=== PATIENT | female | born 1955 | race Caucasian/White ===

== ENCOUNTER → 2016-06-11 | Outpatient (CLI) | payer OTHER ==
[~2016-06-11] VITALS: Ht 180.3 cm; Wt 74.8 kg
[~2016-06-11] MED LIST: ADIPEX-P37.5 M1 PO; ALDACTONE100 MG PO; ALDACTONE25 MG PO; AMBIEN 10 MG TA10 MG PO; AMBIEN 5 MG TABL5 M1 PO; APAP500; BACLOFEN 10 MG Table PO; BACLOFEN 10 MG10 MG PO; BACLOFEN 10MG T10 M1 PO; BACLOFEN 10MG T10 MG PO; BENADRYL ALLERG25 MG; CLONIDINE0.1 PO; DESYREL150 MG PO; DOLOPHINE HCL10 MG PO; ESTRACE PO; Estradiol PO; FIRST-TESTOSTER60 G1; HYOMAX-DT0.375 MG PO; KAPVAY0.1 MG PO; KLONOPIN0.5 MG PO; LEVOTHROID100 MC1 PO; LEVOTHYROXIN0.075 MG PO; LIPITOR10 MG PO; LYRICA 50 MG50 MG PO; LYRICA 75 MG CA75 MG PO; MEDROLDOSEPACK PO; MELATONIN5 M1 PO; METHADONE HCL 110 M1 PO; METHADOSE10 M1 PO; METHADOSE10 MG PO; MOBIC15 MG PO; PHENTERMINE H37.5 MG PO; PRAVACHOL40 MG PO; PROTONIX 20 MG20 M1 PO; RESVERATROL250 MG PO; SYNTHROID100 MCG PO; TESTOSTERONE2.5 GM TD; TRAZODONE 150150 M1 PO; VISTARIL 25 MG25 M1 PO; WELLBUTRIN SR150 MG PO; WELLBUTRIN XL300 M1 PO
--- NOTE | ~2016-06-11 | HPC ---
[facility] [place] [address] PAIN MANAGEMENT CONSULTATION Name: ROSLYNADINA Roman [facility] #: [facility] [id number] Admission: 06/11/16 Attend Phys: Magaly Cottrell MD Discharge: Date of : 55 Report #: [id number] THIS REPORT FOR: //name// CC: JULIAN Rossi DATE OF SERVICE: 06/11/2016 DATE OF SERVICE: 06/11/2016 FOLLOWUP COMPLAINT: Pain in the left upper neck and middle back. FOLLOWUP HISTORY: The patient is a 60-year-old female, who has been followed in the pain clinic because of right shoulder pain. She also, as you recall, has chronic regional pain syndrome involving her left side. She has noted increased pain and discomfort in the right shoulder area as well as in the right scapular area. She rates these discomfort as a 8-9/10. It causes more pain and discomfort when she tries to perform activities of daily living. She has noted some pain and discomfort radiating down the side of her right shoulder as well as some in the area of the right clavicle. PHYSICAL EXAMINATION: Blood pressure 147/89, pulse 81, respiratory rate 14, room air saturations 100%. The patient's BMI is 23, weight 74 kilograms. Palpation in the right trapezius area reproduces a myofascial trigger points. Palpation in the rhomboid area on the right paraspinous area reproduces pain and discomfort as well. IMPRESSION: Mild fascial trigger points in 2 muscle groups in the right trapezius as well as the right rhomboid area. RECOMMENDATION: We will proceed with an injection to the 2 trigger point areas. Risks and benefits of a trigger point were discussed. Possibility of pneumothorax was reviewed. The patient elects to proceed. PROCEDURE NOTE: The patient was placed in the sitting position. Her right shoulder area was sterilely prepped with alcohol. A #25-gauge needle was then advanced to the area of the trapezius muscle. The patient stated that the needle was placed in the trigger point and was experiencing her usual pain and discomfort. A total of 10 mL of 0.5% bupivacaine and 40 mg triamcinolone was injected into this area. The second trigger point at the rhomboid area on the right was noted. A #25-gauge needle was then advanced to this area. This reproduced the patient's pain and discomfort as well. A total of 10 mL of 0.5% bupivacaine and 40 mg triamcinolone was injected. The patient tolerated the procedure well. There were no complications. Her pain decreased from 9-3 at the time of discharge. She will follow up in the future [place] [address] PAIN MANAGEMENT CONSULTATION Name: ADINA MCGOWAN Room #: REG SHANIA Weber#: [id number] Admission: 06/11/16 Attend Phys: Magaly Cottrell MD Discharge: Date of : 55 Report #: [id number] like to thank you for letting us participate in her care. We hope she continues to improve. IMPRESSION: 1. Myofascial trigger points. 2. Chronic regional pain syndrome involving her right upper extremity. 3. History of lumbar radiculopathy. <ELECTRONICALLY SIGNED> By: Magaly Cottrell MD 07/06/16 1018 1540 [id number] Magaly Cottrell MD /nt
[2016-06-11 11:02] VITALS: BP 147/89
== END ==
LOC: PAIN 07:05
DX: M79.1 Myalgia (principal); G89.4 Chronic pain syndrome; M54.2 Cervicalgia; M54.89 Other dorsalgia; M54.16 Radiculopathy, lumbar region; I10 Essential (primary) hypertension; Z87.891 Personal history of nicotine dependence

== ENCOUNTER → 2016-11-05 | Outpatient (CLI) | payer OTHER ==
[~2016-11-05] VITALS: Ht 180.3 cm; Wt 73.1 kg
--- NOTE | ~2016-11-05 | HPC ---
[facility] [place] [address] PAIN MANAGEMENT CONSULTATION Name: ADINA MCGOWAN [facility] #: [facility] [id number] Admission: 11/05/16 Attend Phys: Magaly Cottrell MD Discharge: Date of : 55 Report #: [id number] THIS REPORT FOR: //name// CC: Maggie Nguyen The patient is seen on 11/05/[address] Donavan Cottrell. FOLLOWUP COMPLAINT: Here for medication renewal, things are going reasonably well. FOLLOWUP HISTORY: The patient is a 61-year-old female who has been followed in the pain clinic. As you recall, she suffers from chronic regional pain syndrome involving her left arm. She continues to find the stimulator helpful. She has continued benefit from bit baclofen, trazodone and hydroxyzine 25 mg. She would like to have these medications renewed. She has had no complications from their use. She is not having any problems with mentation. She feels that these medications enable her to engage in activities, she would not be able to without their use. PHYSICAL EXAMINATION: EXTREMITIES: Patient rates her pain as a 7/10. It involves her right side with radiation down the anterior portion of her right shoulder. She has some trigger points involving the shoulders as well. IMPRESSION: 1. Mild myofascial trigger points in the right trapezius. 2. Right shoulder pain involving reflex sympathetic dystrophy/complex regional pain syndrome involving the left side. RECOMMENDATIONS: We discussed treatment options with the patient. We will continue with her current medical regimen of trazodone, baclofen and hydroxyzine. She will call us if she has any problems with her medications. We would like to thank you for letting us participate in her care. We hope she continues to improve. ASSESSMENT: 1. Myofascial trigger points in the right side. 2. Left circumflex regional pain syndrome involving the upper arm. 3. History of lumbar radiculopathy stable at this juncture. <ELECTRONICALLY SIGNED> By: Magaly Cottrell MD 11/10/16 0810 1026 1257 Magaly Cottrell MD /nt
[2016-11-05 09:09] VITALS: BP 148/96
== END ==
LOC: PAIN 06:47
DX: G89.4 Chronic pain syndrome (principal); M79.1 Myalgia; Z79.899 Other long term (current) drug therapy; Z87.891 Personal history of nicotine dependence

== ENCOUNTER → 2017-01-03 | Outpatient (CLI) | payer OTHER ==
[~2017-01-03] VITALS: Ht 180.3 cm; Wt 73.3 kg
[~2017-01-03] MED LIST changes: +HYDROCHLOROTH12.5 M1 PO; +VOLTAREN GEL 1100 G1 TOP
--- NOTE | ~2017-01-03 | HPC ---
[facility] [place] [address] PAIN MANAGEMENT CONSULTATION Name: ROSLYNADINA Abel Room #: REG Jia Weber#: [id number] Admission: 01/03/17 Attend Phys: Scout Martinez DO Discharge: Date of : 55 Report #: [id number] THIS REPORT FOR: //name// CC: Maggie Martinez HISTORY OF PRESENT ILLNESS: The patient is a pleasant 61-year-old female typically treated for RSD left upper extremity, though this is relatively quiescent. She has a spinal cord stimulator in place which is quite helpful. She was last seen in the pain clinic 11/05/2016. She follows with Dr. Donavan Cottrell for medication management, was given trazodone, baclofen, and hydroxyzine in the last visit. She returns to pain clinic today noting that the right knee is becoming more problematic. I have done a series of Synvisc injections in October 2015. She had excellent relief, though notes pain is gradually beginning to recur. Pain is in the inferior aspect of the right knee, more in the medial aspect, ligaments are intact. There is negligible ballottable edema. She incidentally notes pain in the right wrist as well, it is at the ulnar aspect. I detect no edema. There does not appear to be an obvious ganglion cyst here. Point tender, I suggested we will try some Voltaren gel and have her follow up with orthopedics for evaluation if the wrist continues despite topical Voltaren gel. ASSESSMENT: Symptomatic degenerative joint disease, right knee, excellent relief with Synvisc injection, a little greater than a year ago (October 2015). We will seek authorization for repeat series of Synvisc injection to the right knee. Follow up Tuesday for injection. <ELECTRONICALLY SIGNED> By: Scout Martinez DO 01/05/17 0801 1202 1447 Scout Martinez DO /nt
[2017-01-03 09:11] VITALS: BP 126/75
== END ==
LOC: PAIN 06:37
DX: M17.11 Unilateral primary osteoarthritis, right knee (principal)

== ENCOUNTER → 2017-01-07 | Outpatient (CLI) | payer OTHER ==
[~2017-01-07] VITALS: Ht 177.8 cm; Wt 72.6 kg
--- NOTE | ~2017-01-07 | HPC ---
[facility] [place] [address] PAIN MANAGEMENT CONSULTATION Name: ROSLYNADINA Abel Room #: REG Jia Weber#: [id number] Admission: 01/07/17 Attend Phys: Scout Martinez DO Discharge: Date of : 55 Report #: [id number] THIS REPORT FOR: //name// CC: Maggie Martinez HISTORY OF PRESENT ILLNESS: The patient is a 61-year-old female, prior seen in the pain clinic on 01/03/2017, diagnosed with symptomatic DJD right knee. She had prior had a series of Synvisc injections back in October 2015, little greater than a year ago, she had excellent relief, greater than 90% for 6 months, pain has gradually begun to recur. We sought authorization for another series of Synvisc injections. She presents to pain clinic today for said injection. PHYSICAL EXAMINATION: Unchanged from last visit, vital signs are stable as noted in the EMR, she is afebrile. Subjective pain is 7 on VAS. We have elected to proceed with Synvisc injection today, we will do #2 on 01/20/2017 and #3 Synvisc injection on 02/03/2017. ASSESSMENT: Degenerative joint disease, right knee. PROCEDURE: After written informed consent was obtained, the patient was placed in the seated position with right leg "dangling." Skin overlying the knee was cleansed with ChloraPrep. Skin wheal with Xylocaine was raised. A 20-gauge Angiocath was inserted from an inferior lateral approach over the fibula in the superior medial trajectory into the knee joint. The needle was removed, 2 mL of Synvisc was injected. The Angiocath was removed. The area was cleansed, Band-Aids applied. The patient monitored for an appropriate period of time. I reviewed the primary risk being infection, told to return to the ER if she has signs and symptoms of swelling in the right knee, warmth, heat, hyperpyrexia. <ELECTRONICALLY SIGNED> By: Scout Martinez DO 01/10/17 0908 1200 1221 Scout Martinez DO /nt
[2017-01-07 10:08] VITALS: BP 143/77
== END | disposition home or self-care (01) ==
LOC: PAIN 07:19
DX: M17.11 Unilateral primary osteoarthritis, right knee (principal); Z87.891 Personal history of nicotine dependence

== ENCOUNTER → 2017-01-20 | Outpatient (CLI) | payer OTHER ==
[~2017-01-20] VITALS: Ht 172.7 cm; Wt 72.6 kg
--- NOTE | ~2017-01-20 | HPC ---
[facility] [place] [address] PAIN MANAGEMENT CONSULTATION Name: ROSLYNADINA Roman Room #: REG [facility] Gus#: [id number] Admission: 01/20/17 Attend Phys: Scout Martinez DO Discharge: Date of : 55 Report #: [id number] THIS REPORT FOR: //name// CC: Maggie Martinez PROCEDURE: Right knee joint injection (Orthovisc). INDICATIONS: Symptomatic degenerative joint disease right knee, the patient had initial Orthovisc injection 01/07/2017. She prior had excellent relief with a series of three injections in October 2015 for nearly 1 year relief. The patient returns to pain clinic today noting the first injection has afforded some incremental relief. She wished to proceed with the injection today. She is afebrile. PHYSICAL EXAMINATION: Unchanged. There is no ballottable edema in the right knee. ASSESSMENT: Degenerative joint disease, right knee. PROCEDURE: After written informed consent was obtained, the patient was placed in the seated position with right leg allowing to "dangle." Skin in the inferolateral aspect of the knee was cleansed with ChloraPrep. A skin wheal was raised with Xylocaine 1%. A 20-gauge Angiocath was inserted from an inferior lateral aspect and superior medial trajectory over the tibial tubercle and to the knee joint. Needle was removed. A 2 mL of Orthovisc was injected, the Angio-cath was removed. The area was cleansed, Band-Aids applied. The patient was told to use ice to the area today. Contact the pain clinic if she has any symptoms of infection including temperature, fever, chills, swelling, redness in the knee. PLAN: Follow up in 2 weeks for a third injection. <ELECTRONICALLY SIGNED> By: Scout Martinez DO 01/21/17 1225 1136 1945 Scout Martinez DO /nt
[2017-01-20 09:16] VITALS: BP 148/93
== END | disposition home or self-care (01) ==
LOC: PAIN 06:52
DX: M17.11 Unilateral primary osteoarthritis, right knee (principal); G89.29 Other chronic pain; Z98.890 Other specified postprocedural states; Z87.891 Personal history of nicotine dependence; Z79.899 Other long term (current) drug therapy

== ENCOUNTER → 2017-02-03 | Outpatient (CLI) | payer OTHER ==
[~2017-02-03] VITALS: Ht 177.8 cm; Wt 72.4 kg
--- NOTE | ~2017-02-03 | HPC ---
[facility] [place] [address] PAIN MANAGEMENT CONSULTATION Name: ADINA MCGOWAN Room #: REG [facility] Gus#: [id number] Admission: 02/03/17 Attend Phys: Scout Martinez DO Discharge: Date of : 55 Report #: [id number] THIS REPORT FOR: //name// CC: Maggie Martinez The patient is a delightful 61-year-old female being treated for right knee DJD. She has comorbidity including left upper extremity RSD requiring high risk complex medication management. She presents to pain clinic today for #3 in a series of Synvisc injections in that right knee. Injection #1 was January 07, injection #2 was January 20. She notes incremental improvement. She wishes to proceed with injection today. We discussed risks and benefits including possibility of infection. PROCEDURE: Right knee Synvisc injection. PROCEDURE NOTE: After written informed consent was obtained, the patient was placed in a seated position with weight offloaded on the right leg. Wide prep and drape was accomplished. Skin wheal with Xylocaine was raised. A 20-gauge Angiocath was inserted from an inferior lateral approach immediately over the lateral aspect of the fibula into the joint in a medial superior trajectory. 2 mL of Synvisc was injected. The Angiocath was then removed. The area was cleansed, Band-Aids applied. The patient monitored for an appropriate period of time, told to use ice to the area today. Monitor for signs of infection. Follow up as needed for medication management. <ELECTRONICALLY SIGNED> By: Scout Martinez DO 02/04/17 0705 1241 1642 Scout Martinez DO /nt
[2017-02-03 09:21] VITALS: BP 129/76
== END | disposition home or self-care (01) ==
LOC: PAIN 06:45
DX: M17.11 Unilateral primary osteoarthritis, right knee (principal); G90.512 Complex regional pain syndrome I of left upper limb; Z79.891 Long term (current) use of opiate analgesic; Z87.891 Personal history of nicotine dependence; Z91.040 Latex allergy status; Z98.890 Other specified postprocedural states

== ENCOUNTER → 2018-03-21 | Outpatient (CLI) | payer OTHER ==
[~2018-03-21] VITALS: Ht 177.8 cm; Wt 77.1 kg
[~2018-03-21] MED LIST changes: +LIORESAL 10 MG10 MG PO
--- NOTE | ~2018-03-21 | HPC ---
[facility] [place] [address] PAIN MANAGEMENT CONSULTATION Name: ADINA MCGOWAN [facility]: [facility] [id number] Admission: 03/21/18 Attend Phys: Lam Martinez DO Discharge: Date of : 55 Report #: [id number] THIS REPORT FOR: //name// CC: Maggie Graf DATE OF SERVICE: 03/21/2018 CHIEF COMPLAINT: Left knee pain. HISTORY OF PRESENT ILLNESS: As you know, the patient is a 62-year-old female with longstanding history of bilateral knee pain. She has undergone Orthovisc injection of the right knee with good improvement. She now continues to experience some left knee pain, which she is able to place directly over the patella. In the lateral inferior portion of the patellar area is a single point specific area of pain. There does not appear to be any deep pain elicited with movement. She has returned requesting a possible injection over the area to improve left knee discomfort. She is placing pain score at 6/10. States her pain is dull, aching and stabbing in sensation, exacerbated with biking, improves with ice compresses. She returns today to discuss the opportunity of undergoing injection in the area. She denies injury or trauma to this left knee. ALLERGIES: LASIX AND ADHESIVE TAPES. CURRENT MEDICATIONS: Baclofen, hydroxyzine, hydrochlorothiazide, testosterone, bupropion, levothyroxine, zolpidem, clonidine, estradiol. SOCIAL HISTORY: The patient denies tobacco, alcohol, IV or illicit drug use. She is unaccompanied today. IMAGING: No new imaging available. PQRS: The patient has known osteoarthritis of the bilateral knees. No rheumatoid arthritis. She has pain intensity 6/10. She is not a fall risk, has not had a fall in the last 3 months. She is not on blood thinners, but is treated for hypertension. She has been on opioids for greater than 6 weeks. She has a low risk assessment tool for opioid addiction. She is placing functional pain impact score at 6/70 mild. PHYSICAL EXAMINATION: VITAL SIGNS: Blood pressure 130/94, pulse is 88, respiratory rate 16 and unlabored. The patient is 99% on room air. Height 5 feet 10 inches tall, weight 170 pounds, BMI calculated 24.4. GENERAL: Well-developed, well-nourished, well-hydrated 62-year-old female [address] [address] PAIN MANAGEMENT CONSULTATION Name: ADINA MCGOWAN Room #: REG CLI [facility]#: [id number] Admission: 03/21/18 Attend Phys: Lam Martinez DO Discharge: Date of : 55 Report #: [id number] appearing stated age, placing current pain score 6/10. HEENT: Normocephalic, atraumatic. Pupils are equal, round, reactive to light. EXTREMITIES: Show no clubbing, no cyanosis. MUSCULOSKELETAL: There is noted left arm is in a sling. There are changes in skin color, texture over the area consistent with RSD of the left upper extremity. Remainder of extremities show no clubbing, no cyanosis, no edema. There is palpatory tenderness noted over the lateral inferior aspect of the patella. There is no crepitus noted with active and passive range of motion. Anterior and posterior drawer tests are negative. Pain is elicited with standing and bending the left knee. There is no Escamilla's cyst noted on palpation. There is no pain along the tibial plateau. ASSESSMENT: 1. Left patellar pain. 2. Reflex sympathetic dystrophy of the left upper extremity. 3. Osteoarthritis of the knees. PLAN: 1. The patient returns today in followup visit with point specific pain over the left patella. I am unable to elicit any patella malacial symptoms with deep decompression over the patella with active and passive range of motion. Drawer tests are negative. Lateral collateral and medial collateral ligaments are intact. The patient has pain with standing directly over this single point of discomfort. Given the findings and physical exam, I would recommend the patient trial trigger point over this area. This will allow us to provide some benefit from pain standpoint and determine if the patella area is the problem. If pain continues, I would recommend x-ray imaging with sunrise view. We will discuss this imaging if necessary in the future to discuss options of surgical treatment. 2. The patient was advised the risks and benefits of trigger point injections over the left knee. These risks include but are not necessarily limited to bleeding, bruising, infection, worsening pain, no relief of pain, also risk of temporary or permanent muscle weakness, temporary or permanent nerve damage, possible paralysis and . The patient states understood and wished to proceed. 3. No medication changes made at today's visit. The patient will continue current medical therapy as previously prescribed. 4. We will see the patient back in followup visit on an as needed basis. PROCEDURE NOTE DESCRIPTION OF PROCEDURE: Trigger point injection. By palpating using a single finger, we found 2 specific points of discomfort that caused the patient's typical pain pattern. A 27-gauge 1-1/4 inch needle was used to advance towards the trigger points directly. Needle was advanced [address] [address] PAIN MANAGEMENT CONSULTATION Name: ADINA MCGOWAN Room #: REG CLI Lencho#: [id number] Admission: 03/21/18 Attend Phys: Lam Martinez DO Discharge: Date of : 55 Report #: [id number] until the patient's trigger point was identified. After negative aspiration for heme, 1 mL of a solution containing 1 mL 40 mg per mL, 40 mg total triamcinolone and 2 mL bupivacaine 0.5% was injected at each site. Needle was retracted long term, flushed with 0.25 mL of lidocaine and removed. Sterile bandage placed over injection site. The patient tolerated the trigger points well without complications. After meeting discharge criteria, the patient discharged home. <ELECTRONICALLY SIGNED> By: Lam Martinez DO 03/22/18 0836 1613 1939 Lam Martinez DO /nt
[2018-03-21 11:40] VITALS: BP 138/94
== END | disposition home or self-care (01) ==
LOC: PAIN 06:17
DX: M79.18 Myalgia, other site (principal); M25.562 Pain in left knee; M17.0 Bilateral primary osteoarthritis of knee; G90.512 Complex regional pain syndrome I of left upper limb; Z91.040 Latex allergy status; Z79.899 Other long term (current) drug therapy; Z87.891 Personal history of nicotine dependence

== ENCOUNTER → 2018-07-25 | Outpatient (CLI) | payer OTHER ==
[~2018-07-25] VITALS: Ht 175.3 cm; Wt 76.9 kg
[~2018-07-25] MED LIST changes: +MAXZIDE-25 MG1 EACH PO; +SPIRONOLACTONE25 M1 PO
[2018-07-25 08:50] VITALS: BP 148/82
--- NOTE | 2018-07-25 09:11 | NUR ---
Pain Clinic Assessment: 1. History of Osteoarthritis: KNEES History of Rheumatoid Arthritis: Not Applicable 2. Height: 5 ft. 9 in. 175.3 cm. Weight: 169.6 lb. oz. 76.930 kg. Patient's BMI: 25.0 3. Vital Signs: BP: 148/82 Pulse: 98 Resp: 16 Temp: 02 Sat: 100 ECG Mon: 4. Pain Intensity: 2 5. Fall Risk: Dizziness: N Needs help standing or walking: N Fallen in the last 3 months: N Fall risk comments: 6. Patient on Blood Thinner: None 7. History of Hypertension: Y 8. Opioid Therapy greater than 6 weeks: Y Opiate Contract Signed: 06/06/01 9. Risk Assessment Tool Provided: 0-LOW 10. Functional Assessment Tool: 11. Recreational Drug Use: Never Drug Type: Tobacco Use: Former Smoker Tobacco Type: Amount or Packs/day: How Many Years: Alcohol Use: Yes Frequency: Special Occasions Quant: 1-2
--- NOTE | 2018-07-26 08:10 | HPC ---
[facility] [place] [address] PAIN MANAGEMENT CONSULTATION Name: ADINA MCGOWAN [facility] #[facility] [id number] Admission: 07/25/18 ������������������ Attend Phys: Lam Martinez DO Discharge: ������������������ Date of : 55 Report #: [id number] THIS REPORT FOR: //name// CC: Maggie Graf DATE OF SERVICE: 07/25/2018 REFERRING PHYSICIAN: Maggie Garibay D.O. CHIEF COMPLAINT: Left knee skin irritation. HISTORY OF PRESENT ILLNESS: As you know, the patient is a very pleasant 62-year-old female who returns today in followup visit with concern of changes in skin color and texture over the lateral portion of the left patella and knee. She indicates that this began spontaneously. No inciting injury or trauma and progressively worsened. She did undergo trigger point injections of the left knee with a steroid at her last visit dated in February 2018. At that time, the patient was having no issues from the steroid exposure appears that there has been some drying effect of the skin overlying the area. She denies injury or trauma. She has monitored the knee area that has not progressed but has not changed significantly. She returns to discuss options for treatment for this left lateral knee skin irritation. ALLERGIES: ADHESIVE TAPE and LATEX. CURRENT MEDICATIONS: Estradiol, clonidine, zolpidem, levothyroxine, bupropion, testosterone, hydroxyzine, spironolactone and triamterene/hydrochlorothiazide. SOCIAL HISTORY: The patient denies tobacco, alcohol, IV or illicit drug use. She is retired. She is unaccompanied today. IMAGING DATA: There is no new imaging available. PQRS: The patient has bilateral knee osteoarthritis. No rheumatoid arthritis. She is placing pain intensity 2/10. She is not a fall risk, has not had a fall in the last 3 months. She is on a blood thinner. She has history of hypertension. She is on chronic opioids and has been so for an extended period of time. She has a low risk of opioid addiction. Pain assessment tool indicates pain level of 6/70 indicating mild interference of daily activities secondary to pain. PHYSICAL EXAMINATION: VITAL SIGNS: Blood pressure 148/82, pulse 98, respiratory rate 16 and unlabored. The patient is 100% on room air. Height 5 feet 9 inches tall, [address] [address] PAIN MANAGEMENT CONSULTATION Name: ADINA MCGOWAN Room #: REG [facility].#: [id number] Admission: 07/25/18 ������������������ Attend Phys: Lam Martinez DO Discharge: ������������������ Date of : 55 Report #: [id number] weight 169.6 pounds and BMI calculated 25.0. GENERAL: Well-developed, well-nourished, well-hydrated 62-year-old female appearing stated age, placing pain score 2/10. HEENT: Normocephalic and atraumatic. Pupils equal, round and reactive to light. EXTREMITIES: Show no clubbing, no cyanosis and no edema. MUSCULOSKELETAL: The patient shows a small area of skin irritation lateral to the patella just above the knee joint. The area is approximately 2 cm x 2 cm in size. There are some skin color changes and texture changes over the area appears to be eczema. There is no underlying tissue damage noted. There is full range of the knee without change in overall pain. There is no laxity in the ligamentous structures of the lateral knee. ASSESSMENT: 1. Eczema. 2. Skin irritation. 3. Osteoarthritis of bilateral knees. PLAN: 1. The patient returns today in followup visit and we are requested to evaluate this area of the lateral knee where she is experiencing some skin color changes and some texture changes, appears to be eczema. We would recommend a conservative treatment option. The patient did receive some injections in the area in February but symptoms did not arise until May, which would indicate that the injection itself provided no irritation, appears to be an eczema type of situation. Recommend conservative treatment. 2. Recommend the patient use a low dose [id number] hydrocortisone cream to apply to the area topically up to twice a day. Once the skin begins to heal, she should use a thicker lubricating ointment such as bag balm or O'Keeffe's to apply over the area to continue to provide nourishment to the underlying skin and hydration. 3. No medication changes other than what was directed above were indicated today. It does appear the patient will improve from this eczema area with conservative treatment. If this is not the case, we would recommend a Dermatology consultation if necessary. ��������������������������������������������� <ELECTRONICALLY SIGNED> ���������������������������������������� By: Lam Martinez DO ��������������������������������������������� 07/26/18 0810 1024 2300 Lam Martinez DO /nt
== END ==
LOC: PAIN 07:05
DX: L29.9 Pruritus, unspecified (principal); L30.9 Dermatitis, unspecified; M17.0 Bilateral primary osteoarthritis of knee; Z79.899 Other long term (current) drug therapy

== ENCOUNTER → 2019-07-19 | Outpatient (CLI) | payer OTHER ==
[~2019-07-19] VITALS: Ht 177.8 cm; Wt 79.8 kg
[~2019-07-19] MED LIST changes: +CATAPRES0.1 MG PO; +cholesterol med
[2019-07-19 07:44] VITALS: BP 139/82
--- NOTE | 2019-07-19 07:46 | NUR ---
Pain Clinic Assessment: 1. History of Osteoarthritis: KNEES History of Rheumatoid Arthritis: Not Applicable 2. Height: 5 ft. 10 in. 177.8 cm. Weight: 176.0 lb. oz. 79.833 kg. Patient's BMI: 25.3 3. Vital Signs: BP: 139/82 Pulse: 94 Resp: 18 Temp: 02 Sat: 99 ECG Mon: 4. Pain Intensity: 6 5. Fall Risk: Dizziness: N Needs help standing or walking: N Fallen in the last 3 months: N Fall risk comments: 6. Patient on Blood Thinner: None 7. History of Hypertension: Y 8. Opioid Therapy greater than 6 weeks: Y Opiate Contract Signed: 06/06/01 9. Risk Assessment Tool Provided: 0-LOW 10. Functional Assessment Tool: 11. Recreational Drug Use: Never Drug Type: Tobacco Use: Former Smoker Tobacco Type: Amount or Packs/day: How Many Years: Alcohol Use: Yes Frequency: Special Occasions Quant: 1
--- NOTE | 2019-07-24 07:45 | HPC ---
[facility] [place] [address] PAIN MANAGEMENT CONSULTATION Name: ADINA MCGOWAN Room #: REG Jia AbreuKrisMariangelKris#: [id number] Admission: 07/19/19 Attend Phys: Lam Martinez DO Discharge: Date of : 55 Report #: [id number] THIS REPORT FOR: cc: Maggie Garibay Christine L. DO Johnson, James E. DO ~ THIS REPORT FOR: //name// DATE OF SERVICE: 07/19/2019 REFERRING PHYSICIAN: Maggie Garibay DO CHIEF COMPLAINT: Bilateral knee pain. HISTORY OF PRESENT ILLNESS: As you know, the patient is a very pleasant 63-year-old female who suffers from bilateral knee pain due to progressively worsening osteoarthritis. She was made today's appointment to undergo bilateral Orthovisc injections under fluoroscopic guidance. She has done very well with previous Orthovisc injections, but unfortunately, her symptoms have returned. She returns today in followup visit to undergo next in the series of injections in hopes of reducing her overall pain for which she gives a pain score today as 6-7/10. She denies new injury or trauma. ALLERGIES: ADHESIVE TAPE AND LATEX. CURRENT MEDICATIONS: Estradiol, zolpidem, levothyroxine, bupropion, testosterone, spironolactone, clonidine. SOCIAL HISTORY: The patient denies tobacco, alcohol, IV or illicit drug use. She is retired, retired years ago, unaccompanied today. PQRS: The patient has known arthritic changes of the bilateral knees. No rheumatoid arthritis. She is placing pain intensity around 6-7/10 today. She is not a fall risk, has not had a fall in last 3 months. She is not on blood thinners, but is treated for hypertension. She is placing pain impact score today at 27/70, moderate interference of daily activities secondary to pain. PHYSICAL EXAMINATION: GENERAL: Well-developed, well-nourished, well-hydrated 63-year-old female appearing stated age. HEENT: Normocephalic, atraumatic. Pupils equal, round, reactive to light. NEUROLOGIC: Speech fluent. The patient deemed a good historian. EXTREMITIES: Show no clubbing, no cyanosis, and no edema. MUSCULOSKELETAL: The patient remains with tenderness to palpation over the [address] [address] PAIN MANAGEMENT CONSULTATION Name: ROSLYNADINA Abel Room #: REG [facility]#: [id number] Admission: 07/19/19 Attend Phys: Lam Martinez DO Discharge: Date of : 55 Report #: [id number] medial and lateral aspect of the knees bilaterally, right greater than left. Pain is elicited with standing from seated position. Active and passive range of motion of the bilateral knees causes intensification of typical pain. There is mild crepitus noted on the right and left. ASSESSMENT: 1. Bilateral knee pain. 2. Bilateral osteoarthritis of the knees. 3. Chronic intractable pain. PLAN: 1. The patient has returned today in followup visit to undergo bilateral Orthovisc injections, the first in the series of 3. She has been advised risks and benefits of the procedure. These risks include but are not necessarily limited to bleeding, bruising, infection, worsening pain, no relief of pain, also risk of temporary or permanent muscle weakness, temporary or permanent nerve damage, possible paralysis and . The patient states understood and wished to proceed. 2. We will see the patient back in followup visit next week for the second in the series of injections followed 2 weeks later by the third and final in the series of injections. PROCEDURE NOTE DESCRIPTION OF PROCEDURE: Bilateral Orthovisc injections under fluoroscopic guidance. After obtaining written consent, the patient was taken back to fluoroscopy suite, placed in a supine position. The knees were placed in a slightly flexed position to facilitate needle entry into the knee joints themselves. The area on the lateral aspect of the knee on the right was prepped and draped in aseptic fashion using chlorhexidine. A 27-gauge 1-1/4 inch needle was then used to anesthetize the skin overlying the injection site with 2 mL preservative-free lidocaine. A 25-gauge 2-inch needle was then advanced under fluoroscopic guidance into the lateral aspect of the joint. This was done without complications or pain. After negative aspiration for heme, 2 mL of Orthovisc high molecular weight hyaluronan 15 mg per mL was injected into the right knee. Needle was retracted approximately senior care, flushed with 1 mL of 1% lidocaine, and then removed. Sterile bandage placed over this injection site. Our attention was then directed to the left knee. The lateral aspect of the knee was then prepped and draped in aseptic fashion using chlorhexidine. A 27-gauge 1-1/4 inch needle was then used to anesthetize skin and subcutaneous tissue on the lateral aspect of the right knee with 2 mL of preservative-free lidocaine. A 25-gauge 2-inch needle was then advanced under fluoroscopic guidance into the lateral aspect of the knee under direct visualization. Knee [address] [address] PAIN MANAGEMENT CONSULTATION Name: ADINA MCGOWAN Room #: REG SHANIA Musa#: [id number] Admission: 07/19/19 Attend Phys: Lam Martinez DO Discharge: Date of : 55 Report #: [id number] was entered without complications. There was no pain or paresthesias with placement of the needle. After negative aspiration for heme, 2 mL of Orthovisc high molecular weight hyaluronan was injected. This is 15 mg per mL dose for a total of 30 mg. Needle was retracted approximately senior care, flushed with 1 mL of 1% lidocaine and then removed. Sterile bandage placed over injection site. The patient tolerated procedure well, carefully escorted to recovery room in stable condition. No apparent complications. After meeting discharge criteria, the patient discharged home. <ELECTRONICALLY SIGNED> By: Lam Martinez DO 07/24/19 0745 [id number] 0844 Lam Martinez DO /nt
== END | disposition home or self-care (01) ==
LOC: PAIN 06:44
DX: M25.561 Pain in right knee (principal); M25.562 Pain in left knee; M17.0 Bilateral primary osteoarthritis of knee; G89.29 Other chronic pain; I10 Essential (primary) hypertension; Z98.890 Other specified postprocedural states; Z79.899 Other long term (current) drug therapy; Z91.040 Latex allergy status; Z87.891 Personal history of nicotine dependence

== ENCOUNTER → 2019-07-26 | Outpatient (CLI) | payer OTHER ==
[~2019-07-26] VITALS: Ht 177.8 cm; Wt 78.5 kg
[2019-07-26 07:25] VITALS: BP 146/81
--- NOTE | 2019-07-26 07:28 | NUR ---
Pain Clinic Assessment: 1. History of Osteoarthritis: KNEES History of Rheumatoid Arthritis: Not Applicable 2. Height: 5 ft. 10 in. 177.8 cm. Weight: 173.0 lb. oz. 78.472 kg. Patient's BMI: 24.8 3. Vital Signs: BP: 146/81 Pulse: 85 Resp: 16 Temp: 02 Sat: 99 ECG Mon: 4. Pain Intensity: 3 5. Fall Risk: Dizziness: N Needs help standing or walking: N Fallen in the last 3 months: N Fall risk comments: 6. Patient on Blood Thinner: None 7. History of Hypertension: Y 8. Opioid Therapy greater than 6 weeks: Y Opiate Contract Signed: 06/06/01 9. Risk Assessment Tool Provided: 0-LOW 10. Functional Assessment Tool: 11. Recreational Drug Use: Never Drug Type: Tobacco Use: Former Smoker Tobacco Type: Amount or Packs/day: How Many Years: Alcohol Use: Yes Frequency: Quant:
--- NOTE | 2019-08-01 11:52 | HPC ---
[facility] [place] [address] PAIN MANAGEMENT CONSULTATION Name: ADINA MCGOWAN Room #: REG Jia KrisMariangel.#: [id number] Admission: 07/26/19 Attend Phys: Lam Martinez DO Discharge: Date of : 55 Report #: [id number] THIS REPORT FOR: cc: Maggie Garibay Christine L. DO Johnson, James E. DO ~ DATE OF SERVICE: 07/26/2019 REFERRING PHYSICIAN: Maggie Garibay DO CHIEF COMPLAINT: Bilateral knee pain. HISTORY OF PRESENT ILLNESS: As you know, the patient is a very pleasant 63-year-old female who suffers from bilateral knee pain due to progressively worsening osteoarthritis. She has undergone the first in the series of viscosupplementation last week with hyaluronic acid. She returns for the second in the series of injections today. She is placing pain at 3/10. She states the pain is sharp, aching and dull, exacerbated with walking and standing. She returns today for the second in the series of injections with hyaluronic acid with plans to complete the series next week. She denies new injury, trauma or any changes in medical history since our last visit. ALLERGIES: ADHESIVE TAPE and LATEX. CURRENT MEDICATIONS: Estradiol, zolpidem, levothyroxine, bupropion, testosterone, spironolactone, clonidine. SOCIAL HISTORY: The patient denies tobacco, alcohol, IV or illicit drug use. She is retired, retired years ago, unaccompanied today. IMAGING: No new imaging available. PQRS: The patient has known arthritic changes of the bilateral knees. No rheumatoid arthritis. She is placing pain intensity today at 3/10. She is not at a fall risk nor she had a fall in the last 3 months. She is not on blood thinners, but is treated for hypertension. She is on chronic opioids with a low opioid addiction potential. Pain impact score 26/70 indicating [id number] interference of daily activities secondary to pain. PHYSICAL EXAMINATION: VITAL SIGNS: Blood pressure 146/81, pulse 85, respiratory rate 16 and unlabored, the patient is 99% on room air. Height 5 feet 10 inches tall, weight 173 pounds, BMI calculated 24.8. GENERAL: Well-developed, well-nourished, well-hydrated 63-year-old female [address] [address] PAIN MANAGEMENT CONSULTATION Name: ROSLYNADINA Room #: REG [facility]#: [id number] Admission: 07/26/19 Attend Phys: Lam Martinez DO Discharge: Date of : 55 Report #: [id number] appearing stated age, pain is rated today at 3/10. HEENT: Normocephalic, atraumatic. Pupils equal, round, reactive to light. EXTREMITIES: Show no clubbing, no cyanosis, no edema. MUSCULOSKELETAL: The patient does have a residual tenderness to palpation over the medial aspect of the knees bilaterally. It does appear that the right is still greater than the left. Pain is elicited from standing position. Ambulation is somewhat altered by gait due to pain generation mainly on the right. Active and passive range of motion of bilateral knees cause typical pain intensification. ASSESSMENT: 1. Bilateral knee pain. 2. Bilateral knee osteoarthritis. 3. Chronic intractable pain. PLAN: 1. The patient returns today in followup visit having seen some improvement already with the initial hyaluronic acid injection provided at our last visit. She returns today to undergo the second in the series of these injections. As you are aware, this is a three series injection provided every week to provide viscosupplementation to the bilateral knees. She returns today to undergo the second in the series of these injections. She has denied any new injury or trauma that may have led to continuation of pain. She has been advised risks and benefits of this procedure, states understood and wished to proceed. 2. No medication changes made at today's visit. The patient will continue current medical therapy as previously prescribed. 3. We will see the patient back in followup visit in 1 week for the third in this staged procedure of viscosupplementation of the bilateral knees with hyaluronic acid. PROCEDURE NOTE PROCEDURE: Bilateral intraarticular knee injections under fluoroscopic guidance with instillation of hyaluronic acid. DESCRIPTION OF PROCEDURE: After obtaining written consent, the patient was taken back to fluoroscopy suite, placed in a supine position. The needles were placed in a slightly flexed position to facilitate needle entry into the joints themselves. The area of the lateral aspect of the right knee was prepped and draped in aseptic fashion using chlorhexidine. A 27-gauge 1-1/4 inch needle was then used to anesthetize skin and subcutaneous tissue with 2 mL of preservative-free lidocaine 1%. A 25-gauge 2-inch needle was then advanced under fluoroscopic guidance into the lateral aspect of the joint. This was done without pain or paresthesias. After negative aspiration for heme, 2 mL of Synvisc high molecular weight hyaluronan 15 mg per mL was injected into the right knee. Needle was removed approximately shelter, flushed with 1 mL of 1% [address] [address] PAIN MANAGEMENT CONSULTATION Name: ADINA MCGOWAN Room #: REG SHANIA Weber#: [id number] Admission: 07/26/19 Attend Phys: Lam Martinez DO Discharge: Date of : 55 Report #: [id number] preservative-free lidocaine and removed. Sterile bandage placed over injection site. Our attention was then directed to the left knee. Lateral aspect of the knee was then prepped and draped in aseptic fashion using chlorhexidine. A 27-gauge 1-1/4 inch needle was then used to anesthetize skin and subcutaneous tissue of the lateral aspect of the left knee with 2 mL of preservative-free 1% lidocaine. A 25-gauge 2-inch needle then advanced under fluoroscopic guidance to the lateral aspect of the left knee. This was done under direct visualization. Knee joint was entered without complications or pain. After negative aspiration for heme, 2 mL of Synvisc high molecular weight hyaluronic acid was injected. Needle was retracted approximately half way, flushed with 1 mL of preservative-free 1% lidocaine and then removed. Sterile bandage placed over injection site. The patient tolerated the procedure well, carefully escorted to recovery room in stable condition. No apparent complications. After meeting discharge criteria, the patient discharged home. <ELECTRONICALLY SIGNED> By: Lam Martinez DO 08/01/19 1152 0816 1212 Lam Martinez DO /nt
== END | disposition home or self-care (01) ==
LOC: PAIN 06:42
DX: M25.561 Pain in right knee (principal); M25.562 Pain in left knee; M17.0 Bilateral primary osteoarthritis of knee; G89.29 Other chronic pain; I10 Essential (primary) hypertension; Z98.890 Other specified postprocedural states; Z79.899 Other long term (current) drug therapy; Z91.040 Latex allergy status; Z79.891 Long term (current) use of opiate analgesic

== ENCOUNTER → 2019-08-02 | Outpatient (CLI) | payer OTHER ==
[~2019-08-02] VITALS: Ht 177.8 cm; Wt 76.2 kg
[2019-08-02 07:36] VITALS: BP 116/71
--- NOTE | 2019-08-02 07:38 | NUR ---
Pain Clinic Assessment: 1. History of Osteoarthritis: KNEES History of Rheumatoid Arthritis: Not Applicable 2. Height: 5 ft. 10 in. 177.8 cm. Weight: 168.0 lb. oz. 76.204 kg. Patient's BMI: 24.1 3. Vital Signs: BP: 116/71 Pulse: 89 Resp: 16 Temp: 02 Sat: 97 ECG Mon: 4. Pain Intensity: 1 5. Fall Risk: Dizziness: N Needs help standing or walking: N Fallen in the last 3 months: N Fall risk comments: 6. Patient on Blood Thinner: None 7. History of Hypertension: Y 8. Opioid Therapy greater than 6 weeks: Y Opiate Contract Signed: 06/06/01 9. Risk Assessment Tool Provided: 0-LOW 10. Functional Assessment Tool: 11. Recreational Drug Use: Never Drug Type: Tobacco Use: Former Smoker Tobacco Type: Amount or Packs/day: How Many Years: Alcohol Use: Yes Frequency: Quant:
--- NOTE | 2019-08-07 13:44 | HPC ---
[facility] [address] [place] [address] PAIN MANAGEMENT CONSULTATION Name: ADINA MCGOWAN Room #: REG Jia Gus#: [id number] Admission: 08/02/19 Attend Phys: Lam Martinez DO Discharge: Date of : 55 Report #: [id number] THIS REPORT FOR: cc: Maggie Garibay Christine L. DO Johnson, James E. DO ~ DATE OF SERVICE: 08/02/2019 CHIEF COMPLAINT: Bilateral knee pain. HISTORY OF PRESENT ILLNESS: As you know, the patient is a very pleasant 63-year-old female who returns today in followup visit to complete the viscosupplementation procedures over the bilateral knees with hyaluronic acid. The patient has completed 2 in the series of 3. She returns today for the third in the series. She is placing pain around 2-3/10. She states pain has begun to improve with the previous injections. She has returned today for the last in the series in hopes of gaining even further benefit. She denies injury or trauma or any changes in medical history since our last visit, 1 week ago. ALLERGIES: ADHESIVE TAPE, LATEX. CURRENT MEDICATIONS: Estradiol, zolpidem, levothyroxine, bupropion, testosterone, spironolactone, clonidine. SOCIAL HISTORY: The patient denies tobacco, alcohol, IV or illicit drug use. She is retired, retired years ago, unaccompanied today. IMAGING: No new imaging available. PQRS: The patient has known arthritic changes of bilateral knees. No rheumatoid arthritis. She is placing pain intensity about 3/10. She is not a fall risk nor has she had a fall in last 3 months. She is not on blood thinners, but is treated for hypertension. She is on chronic opioids with low opioid addiction potential based on our assessment tool. Pain impact is about . PHYSICAL EXAMINATION: GENERAL: Well-developed, well-nourished, well-hydrated 63-year-old female appearing stated age, pain is rated up to 3/10. HEENT: Normocephalic, atraumatic. Pupils equal, round, reactive to light. EXTREMITIES: Show, no clubbing, no cyanosis, no edema. MUSCULOSKELETAL: The patient has pain elicited with standing from a seated position. Active and passive range of motion of bilateral knees does intensify pain, but is improved since previous evaluations. [address] [address] PAIN MANAGEMENT CONSULTATION Name: ADINA MCGOWAN Room #: REG SHANIA Weber#: [id number] Admission: 08/02/19 Attend Phys: Lam Martinez DO Discharge: Date of : 55 Report #: [id number] ASSESSMENT: 1. Bilateral knee pain. 2. Bilateral knee osteoarthritis. 3. Chronic intractable pain. PLAN: 1. The patient returns today in followup visit to complete the series of viscosupplementation injections with hyaluronic acid. The patient reports improving pain with previous 2 injections given over the past 2 weeks. She is here today to complete the third in the series of these injections. She has been advised risks and benefits of procedure, states understood and wished to proceed. 2. No medication changes made at today's visit. The patient will continue current medical therapy as prior prescribed. 3. We will see the patient back in followup visit on an as needed basis. We are hopeful the patient will see good and prolonged benefit with today's viscosupplementation procedure. PROCEDURE NOTE PROCEDURE: Bilateral intraarticular knee injections under fluoroscopic guidance with instillation of hyaluronic acid. DESCRIPTION OF PROCEDURE: After obtaining written consent, the patient was taken back to fluoroscopy suite, placed in a supine position. The knees were placed in a slightly flexed position to facilitate needle entry into the joints themselves. The area of the lateral aspect of the right knee was prepped and draped in aseptic fashion using chlorhexidine. A 27-gauge 1-1/4 inch needle was then used to anesthetize skin and subcutaneous tissue with 2 mL preservative-free 1% lidocaine. A 25-gauge 2-inch needle was then advanced into the lateral aspect of the knee under fluoroscopic guidance. This was done without pain or paresthesias. The needle was advanced without complications once entering into the joint and aspiration noted to be negative for heme, 2 mL of Synvisc high molecular weight hyaluronan 15 mg per mL was injected in the right knee. Needle was then removed approximately alf, flushed with 1 mL of 1% lidocaine and then removed. Sterile bandage placed over this injection site. Our attention was then directed to the left knee. The lateral aspect of the knee was then prepped and draped in aseptic fashion. A 27-gauge 1-1/4 inch needle was then used to anesthetize skin and subcutaneous tissue of the lateral aspect of the knee with 2 mL preservative-free 1% lidocaine. Next, a 25-gauge 2-inch needle was advanced under fluoroscopic guidance into the lateral aspect of the knee. This was done without pain or paresthesias. After negative aspiration for heme, 2 mL of Synvisc high-molecular weight hyaluronic acid 15 mg per mL was injected into the left knee. Needle was retracted approximately half way, flushed with 1 mL of 1% lidocaine and removed. Sterile bandage placed over [address] [address] PAIN MANAGEMENT CONSULTATION Name: ADINA MCGOWAN Room #: REG [facility]#: [id number] Admission: 08/02/19 Attend Phys: Lam Martinez DO Discharge: Date of : 55 Report #: [id number] injection site. There were no new motor deficits present in the lower extremities following procedure. The patient tolerated procedure well, carefully escorted to recovery room in stable condition. No apparent complications. After meeting discharge criteria, the patient discharged home. <ELECTRONICALLY SIGNED> By: Lam Martinez DO 08/07/19 1344 0854 1010 Lam Martinez DO /nt
== END | disposition home or self-care (01) ==
LOC: PAIN 06:42
DX: M25.561 Pain in right knee (principal); M25.562 Pain in left knee; M17.0 Bilateral primary osteoarthritis of knee; G89.29 Other chronic pain; I10 Essential (primary) hypertension; Z98.890 Other specified postprocedural states; Z79.899 Other long term (current) drug therapy; Z79.891 Long term (current) use of opiate analgesic; Z91.040 Latex allergy status; Z87.891 Personal history of nicotine dependence

== ENCOUNTER → 2021-04-07 | Outpatient (CLI) | payer OTHER ==
[~2021-04-07] VITALS: Ht 177.8 cm; Wt 87.5 kg
[~2021-04-07] MED LIST changes: +DEPO-TESTO100 MG/1 M IM; +ESTRADIOL-NORE1 EAC1 PO; +PROGESTERONE100 MG PO; +RELAFEN500 M1 PO; +ROSUVASTATIN CA10 MG PO; -cholesterol med
[2021-04-07 08:54] VITALS: BP 132/70
--- NOTE | 2021-04-07 09:17 | NUR ---
Pain Clinic Assessment: 1. History of Osteoarthritis: KNEES History of Rheumatoid Arthritis: Not Applicable 2. Height: 5 ft. 10 in. 177.8 cm. Weight: 193.0 lb. oz. 87.544 kg. Patient's BMI: 27.7 3. Vital Signs: BP: 132/70 Pulse: 103 Resp: 16 Temp: 02 Sat: 100 ECG Mon: 4. Pain Intensity: 8-9 W/ACTIVITY 5. Fall Risk: Dizziness: N Needs help standing or walking: N Fallen in the last 3 months: N Fall risk comments: 6. Patient on Blood Thinner: None 7. History of Hypertension: Y 8. Opioid Therapy greater than 6 weeks: Y Opiate Contract Signed: 06/06/01 9. Risk Assessment Tool Provided: 0-LOW 10. Functional Assessment Tool: 11. Recreational Drug Use: Never Drug Type: Tobacco Use: Former Smoker Tobacco Type: Amount or Packs/day: How Many Years: Alcohol Use: Yes Frequency: Quant:
--- NOTE | 2021-04-07 12:47 | HPC ---
[facility] [place] [address] PAIN MANAGEMENT CONSULTATION Name: ADINA MCGOWAN Room #: REG SHANIA BearMariangelKris#: [id number] Admission: 04/07/21 Attend Phys: Lam Martinez DO Discharge: Date of : 55 Report #: [id number] THIS REPORT FOR: cc: Maggie Garibay,Lam Helms DO ~ cc: Maggie Garibay DO DATE OF SERVICE: 04/07/2021 CHIEF COMPLAINT: Right medial knee pain. HISTORY OF PRESENT ILLNESS: As you know, the patient is a 65-year-old female who returns today in followup visit with acute onset of right medial knee pain, sustained as an injury doing physical therapy to address pelvic issues. The patient was being treated for iliotibial band tightness on the right side when a maneuver was performed with external rotation of the right hip and manipulation of the lower extremity causing pressure on the medial aspect of the right knee consistent with the medial collateral ligament strain. There was no bruising consistent with a tear of the medial collateral ligament. The patient has been experiencing pain for approximately 8 weeks. There has been minimal attempt at treatment, mild stretching exercises and [id number] medications. She is returned to our clinic to discuss treatment options. She is placing her pain today at a level of 8-9/10 depending on activity. Other than the injury sustained during the physical therapy process, she has had no other injuries to the area. ALLERGIES: ADHESIVE TAPE, LATEX. CURRENT MEDICATIONS: Estradiol, testosterone, progesterone, rosuvastatin, spironolactone, levothyroxine, and zolpidem. SOCIAL HISTORY: The patient denies tobacco, alcohol or IV or illicit drug use. She is retired, retired years ago, unaccompanied today. IMAGING: No new imaging available. PQRS: The patient has known arthritic changes of the bilateral knees. No rheumatoid arthritis. Placing pain today at around 8-9/10 depending on activity. She is not a fall risk, has not had a fall in last 3 months. She is not on blood thinners, but is treated for hypertension. She is on chronic opioids, has a low opioid addiction potential. Pain impact is 26/70, moderate interference of daily activities secondary to pain. PHYSICAL EXAMINATION: VITAL SIGNS: Blood pressure 132/70, pulse 103, respiratory rate 16 and unlabored. The patient is 100% on room air. Height 5 feet 10 inches tall, [address] [address] PAIN MANAGEMENT CONSULTATION Name: ADINA MCGOWAN [id number] Admission: 04/07/21 Attend Phys: Lam Martinez DO Discharge: Date of : 55 Report #: [id number] weight 193 pounds, BMI calculated 27.7. GENERAL: Well-developed, well-nourished, well-hydrated 65-year-old female appearing stated age, pain is rated anywhere from 8-9/10. HEENT: Normocephalic, atraumatic. Pupils equal, round and responsive. EXTREMITIES: Show no clubbing, no cyanosis, no edema. MUSCULOSKELETAL: The patient has some palpatory tenderness along the medial aspect of the right knee. There is no point specific tenderness other than the area of the medial collateral ligament. There is no tibial plateau tenderness consistent with a meniscus injury. Drawer test of both anterior and posterior are negative. There is no laxity of the medial or collateral ligaments with maneuvers. Pain is elicited with medial collateral stretching. There are no changes in skin color, texture or bruising over the area. ASSESSMENT: 1. Right medial collateral ligament strain. 2. Chronic knee pain due to osteoarthritis. PLAN: 1. Based on today's physical exam and history the patient has provided, the description the patient uses in regard to pain as well as location of symptoms, it would appear the patient is suffering from medial collateral ligament strain/sprain. We would recommend a conservative treatment approach. The fact the patient had no bruising over the area would indicate there is no definitive tear of the medial collateral ligament. There is no laxity during evaluation concerning for any type of tear. It does appear to be a sprain of the medial collateral ligament. I am unable to elicit any meniscal pain with evaluation, though this cannot be fully ruled out. We discussed that the patient our findings and physical exam and our diagnosis and then provided adjustments in medication management. 2. The patient will be started on Medrol Dosepak. Should would take the pack as directed. She was sent a Medrol Dosepak to her local pharmacy via e-scribe. 3. We will start the patient on nabumetone 500 mg dose 1 tab p.o. t.i.d. I recommend to take this with meals. This will reduce the potential of dyspepsia, worsening of blood pressure, lower extremity edema. If she notes any side effects, discontinue immediately. A prescription for #90 tablets was sent to local pharmacy. 4. We have recommended the patient continue to follow up with her physical therapy group. We have recommended that they address the medial collateral ligament with ultrasound therapy and light stretching as well as some myofascial release techniques. This should assist the pain in further improvement. We would recommend a conservative treatment approach to the medial collateral ligament at this time. 5. We will see the patient back in followup visit on an as needed basis. I am hopeful that the adjustments made today will help the patient gain improvement in pain. I do feel that with ultrasound therapy, medication management the [facility] [address] [place] [address] PAIN MANAGEMENT CONSULTATION Name: ROSLYNADINA Room #: REG [facility].#: [id number] Admission: 04/07/21 Attend Phys: Lam Martinez DO Discharge: Date of : 55 Report #: [id number] symptoms should improve. If they do not, I am going to have the patient return to discuss intra-articular injections. <ELECTRONICALLY SIGNED> By: Lam Martinez DO 04/07/21 1247 [id number] Lam Martinez DO /nt
== END ==
LOC: PAIN 07:14
PROVIDERS: ATTEND Anesthesiology Pain Medicine
DX: G89.29 Other chronic pain (principal); M17.11 Unilateral primary osteoarthritis, right knee; Z88.8 Allergy status to other drugs, medicaments and biological substances; Z79.899 Other long term (current) drug therapy

== ENCOUNTER → 2021-05-26 | Outpatient (CLI) | payer OTHER ==
[~2021-05-26] VITALS: Ht 177.8 cm; Wt 87.3 kg
--- NOTE | ~2021-05-26 | HPC ---
[facility] [place] [address] PAIN MANAGEMENT CONSULTATION Name: ADINA MCGOWAN Room #: REG Jia Gus#: [id number] Admission: 05/26/21 Attend Phys: Lam Martinez DO Discharge: Date of : 55 Report #: [id number] THIS REPORT FOR: cc: Maggie Garibay,Lam Helms DO ~ cc: Maggie Garibay DO DATE OF SERVICE: 05/26/2021 CHIEF COMPLAINT: Right medial knee pain. HISTORY OF PRESENT ILLNESS: As you know, the patient is a 65-year-old female returning in followup visit with continued right medial knee pain sustained during injury, doing physical therapy to address pelvic issues. She was seen in consultation at our visit of 04/07/2021, diagnosed with right medial collateral ligament strain. She has been undergoing physical therapy and ultrasound therapy, which has improved symptoms. She has been advised by the therapist that there is a possibility she may be suffering from meniscal injury. Apparently, she is having some "locking up of the knee." I was unable to elicit that finding and physical exam today. The patient indicates that she wants to trial conservative treatment before looking toward surgical options. She is requesting Synvisc injections. She has noted about 80% improvement in overall pain with those injections in the past. She returns to begin the first in the series of 3 Synvisc injections to address right knee pain due to a meniscal injury and osteoarthritis. ALLERGIES: ADHESIVE TAPE AND LATEX. CURRENT MEDICATIONS: Nabumetone, estradiol, testosterone, progesterone, rosuvastatin, spironolactone, zolpidem, levothyroxine, bupropion. SOCIAL HISTORY: The patient denies tobacco, alcohol or IV or illicit drug use. She is retired, retired years ago, unaccompanied today. IMAGING: No new imaging available. PQRS: The patient has known arthritic changes of bilateral knees and lumbar spine. No rheumatoid arthritis. Pain intensity today is rated at 3/10. She is not a fall risk, has not had a fall in last 3 months. She is not on blood thinners, but is treated for hypertension. She is on chronic opioids, has a low opioid addiction potential based on assessment tool. Pain impact is 26/70, mild to moderate interference of daily activities secondary to pain. PHYSICAL EXAMINATION: VITAL SIGNS: Blood pressure 138/74, pulse 94, respiratory rate 14 and unlabored. The patient is 97% on room air. Height 5 feet 10 inches tall, [place] [address] PAIN MANAGEMENT CONSULTATION Name: ADINA MCGOWAN Room #: REG [facility]#: [id number] Admission: 05/26/21 Attend Phys: Lam Martinez DO Discharge: Date of : 55 Report #: [id number] weighs 192.4 pounds, BMI calculated 27.6. GENERAL: Well-developed, well-nourished, well-hydrated 65-year-old female appearing stated age, placing current pain score at 3/10. HEENT: Normocephalic, atraumatic. Pupils equal, round and responsive. She is wearing a mask in compliance with COVID-19 regulations. EXTREMITIES: Show no clubbing, no cyanosis. No appreciable edema. MUSCULOSKELETAL: There is once again palpatory tenderness over the medial aspect of the right knee. No point specific tenderness over the tibial plateau. Drawer tests of both anterior and posterior negative. There is no laxity of the medial or lateral collateral ligaments based on exam. Active and passive range of motion of the right knee is met with slight crepitus noted with movement. ASSESSMENT: 1. Right knee pain. 2. Right knee osteoarthritis. 3. Right medial collateral ligament strain. 4. Chronic intractable pain. PLAN: 1. The patient returns today in followup visit with continued right knee pain. She is requesting a Synvisc injection to be provided today. She states that she has had some "locking up" of her right knee in the past, which has been diagnosed presumptively as a meniscal injury. I was unable to elicit any bucket handle type of physical exam findings such as lack of fold movement of the knee. During the examination, there was no "locking up." Weightbearing did not change the patient's pain today. We have discussed with the patient that the findings on physical exam would indicate chronic knee pain due to osteoarthritis. There could be a meniscal injury given the fact that she has had some medial collateral ligament complaints, though clinically I was unable to elicit that today. After a physical exam and discussion of treatment, the patient chose to undergo Synvisc injections that she has noted improvement in symptoms in the past. She has been advised the risks and benefits of this procedure, states understood and wished to proceed. 2. No medication changes made at today's visit. The patient will continue current medical therapy as prior prescribed. 3. We will see the patient back in followup visit in 2 weeks for the second in the series of Synvisc injections. We will keep you apprised of response to treatment. PROCEDURE NOTE DESCRIPTION OF PROCEDURE: Right intra-articular knee injection under fluoroscopic guidance with Synvisc. After obtaining written consent, the patient was taken back to fluoroscopy [address] [address] PAIN MANAGEMENT CONSULTATION Name: ADINA MCGOWAN Room #: REG [facility]#: [id number] Admission: 05/26/21 Attend Phys: Lam Martinez DO Discharge: Date of : 55 Report #: [id number] suite, placed in supine position. The right knee was braced with a pillow and AP imaging was obtained of the right knee. The area overlying the medial aspect of the knee was then prepped and draped in aseptic fashion using chlorhexidine. A 27-gauge 1-1/4-inch needle was then used to anesthetize skin and subcutaneous tissue with 2 mL preservative-free 1% lidocaine. A 25-gauge 2-inch needle was advanced into the knee, utilizing a medial to cephalolateral aspect of the knee. The needle was advanced without pain or paresthesias. After negative aspiration for heme, 2 mL of Synvisc high molecular weight hyaluronan 15 mg per mL was injected into the right knee. Needle was then retracted approximately [place], flushed with 1 mL of 1% lidocaine and then removed. Sterile bandage placed over injection site. There were no new motor deficits present in the right lower extremity following procedure. The patient tolerated the procedure well, carefully escorted to recovery room in stable condition. No apparent complications. After meeting our discharge criteria, the patient discharged home. By: [id number] Lam Martinez, DO /nt
[2021-05-26 09:49] VITALS: BP 138/74
--- NOTE | 2021-05-26 09:58 | NUR ---
Pain Clinic Assessment: 1. History of Osteoarthritis: KNEES History of Rheumatoid Arthritis: Not Applicable 2. Height: 5 ft. 10 in. 177.8 cm. Weight: 192.4 lb. oz. 87.272 kg. Patient's BMI: 27.6 3. Vital Signs: BP: 138/74 Pulse: 94 Resp: 14 Temp: 02 Sat: 97 ECG Mon: 4. Pain Intensity: 3 5. Fall Risk: Dizziness: N Needs help standing or walking: N Fallen in the last 3 months: N Fall risk comments: 6. Patient on Blood Thinner: None 7. History of Hypertension: Y 8. Opioid Therapy greater than 6 weeks: Y Opiate Contract Signed: 06/06/01 9. Risk Assessment Tool Provided: 0-LOW 10. Functional Assessment Tool: 11. Recreational Drug Use: Never Drug Type: Tobacco Use: Former Smoker Tobacco Type: Amount or Packs/day: How Many Years: Alcohol Use: Yes Frequency: Special Occasions Quant: 1
== END | disposition home or self-care (01) ==
LOC: PAIN 06:58
PROVIDERS: ATTEND Anesthesiology Pain Medicine
DX: M25.561 Pain in right knee (principal); M17.11 Unilateral primary osteoarthritis, right knee; S83.419A Sprain of medial collateral ligament of unspecified knee, initial encounter; G89.29 Other chronic pain; I10 Essential (primary) hypertension; M19.90 Unspecified osteoarthritis, unspecified site; Z98.890 Other specified postprocedural states; Z79.899 Other long term (current) drug therapy; Z91.040 Latex allergy status

== ENCOUNTER → 2021-06-09 | Outpatient (CLI) | payer OTHER ==
[~2021-06-09] VITALS: Ht 177.8 cm; Wt 86.3 kg
[2021-06-09 09:45] VITALS: BP 124/77
--- NOTE | 2021-06-09 09:52 | NUR ---
Pain Clinic Assessment: 1. History of Osteoarthritis: KNEES History of Rheumatoid Arthritis: Not Applicable 2. Height: 5 ft. 10 in. 177.8 cm. Weight: 190.2 lb. oz. 86.274 kg. Patient's BMI: 27.3 3. Vital Signs: BP: 124/77 Pulse: 99 Resp: 14 Temp: 02 Sat: 99 ECG Mon: 4. Pain Intensity: 1 5. Fall Risk: Dizziness: N Needs help standing or walking: N Fallen in the last 3 months: N Fall risk comments: 6. Patient on Blood Thinner: None 7. History of Hypertension: Y 8. Opioid Therapy greater than 6 weeks: Y Opiate Contract Signed: 06/06/01 9. Risk Assessment Tool Provided: 0-LOW 10. Functional Assessment Tool: 11. Recreational Drug Use: Never Drug Type: Tobacco Use: Former Smoker Tobacco Type: Amount or Packs/day: How Many Years: Alcohol Use: Yes Frequency: Special Occasions Quant: 1
--- NOTE | 2021-06-10 08:06 | HPC ---
[facility] [place] [address] PAIN MANAGEMENT CONSULTATION Name: ADINA MCGOWAN Room #: REG Jia Gus#: [id number] Admission: 06/09/21 Attend Phys: Lam Martinez DO Discharge: Date of : 55 Report #: [id number] THIS REPORT FOR: cc: Maggie Garibay Christine L. DO Johnson, James E. DO ~ DATE OF SERVICE: 06/09/2021 CHIEF COMPLAINT: Right medial knee pain. HISTORY OF PRESENT ILLNESS: As you know, the patient is a very pleasant 65-year-old female following up today to undergo the second in the series of Synvisc injections to address right knee pain secondary to osteoarthritis. The patient underwent successfully the first in the series of Synvisc injections on 05/26/2021 with improvement in symptoms of about 20-30%. She returns today in followup visit for the second in the series of injections placing pain today at 06/08. She has had no injury, no trauma or any changes in medication management since her last visit. ALLERGIES: ADHESIVE TAPE AND LATEX. CURRENT MEDICATIONS: Nabumetone, estradiol, testosterone, progesterone, rosuvastatin, spironolactone, zolpidem, levothyroxine, bupropion. SOCIAL HISTORY: The patient denies tobacco, alcohol, or IV or illicit drug use. She retired, retired years ago, unaccompanied today. IMAGING: No new imaging available. PQRS: The patient has known arthritic changes of bilateral shoulders. Bilateral knees and lumbar spine, no rheumatoid arthritis. She is placing pain today at 1/10. She is not a fall risk, has not had a fall in last 3 months. She is not on blood thinners, but is treated for hypertension. She is on chronic opioids, has a low opioid addiction potential based on assessment tool. Pain impact is 26 of 70, moderate interference of daily activities secondary to pain. PHYSICAL EXAMINATION: VITAL SIGNS: Blood pressure 124/77, pulse 99, respiratory rate 14 and unlabored. The patient 99% on room air. Height 5 feet 10 inches tall, weight 190.2 pounds, BMI calculated 27.3. GENERAL: Well-developed, well-nourished, well-hydrated 65-year-old female appearing stated age, pain is rated today 1/10. HEENT: Normocephalic, atraumatic. She is wearing a mask in compliance with COVID-19 regulations and hospital policies. EXTREMITIES: Show no clubbing, no cyanosis, and no edema. MUSCULOSKELETAL: Palpatory tenderness is again noted over the right medial aspect of the knee. No point specific pain over the tibial plateau. [address] [address] PAIN MANAGEMENT CONSULTATION Name: ADINA MCGOWAN Room #: REG SHANIA Weber#: [id number] Admission: 06/09/21 Attend Phys: Lam Martinez DO Discharge: Date of : 55 Report #: [id number] tests remain again negative. ASSESSMENT: 1. Right knee pain. 2. Right knee osteoarthritis. 3. Right medial collateral ligament strain. 4. Chronic intractable pain. PLAN: 1. The patient returns today in followup visit for the second in the series of Synvisc injections under fluoroscopic guidance. She reports excellent benefit with the previous injection. She has had reduction of pain from 3/10-1/10. She returns today for the second in the series. She has been advised risks and benefits of the procedure, states understood and wished to proceed. 2. We plan to see the patient back in followup visit in 2 weeks for the third in the series of injections. I am hopeful the patient once again see good improvement in symptoms prior to our next visit. PROCEDURE NOTE. DESCRIPTION OF PROCEDURE: Right intra-articular knee injection under fluoroscopic guidance with Synvisc #2 in the series. After obtaining written consent, the patient was taken back to fluoroscopy suite, placed in prone position. The right knee was braced with a pillow and AP imaging was obtained of the right knee. The area overlying the medial aspect of the knee was then prepped and draped in aseptic fashion using chlorhexidine. A 27-gauge 1-1/4-inch needle was then used to anesthetize skin and subcutaneous tissue with 2 mL of preservative-free 1% lidocaine. A 25-gauge 2-inch needle was then advanced into the right knee utilizing a medial to cephalolateral direction, entering the knee. Needle was advanced without pain or paresthesias. After negative aspiration for heme, 2 mL of Synvisc high molecular weight hyaluronic acid 15 mg per mL was injected into the right knee. Needle was then retracted [facility], flushed with 1 mL of 1% lidocaine and removed. Sterile bandage placed over injection site. There were no new motor deficits present in the right lower extremity following procedure. The patient tolerated the procedure well, carefully escorted to recovery room in stable condition. No apparent complications. After meeting our discharge criteria, the patient discharged home. <ELECTRONICALLY SIGNED> By: Lam Martinez DO 06/10/21 0806 1009 19 Lam Martinez, DO /nt
== END | disposition home or self-care (01) ==
LOC: PAIN 08:08
PROVIDERS: ATTEND Anesthesiology Pain Medicine
DX: M25.561 Pain in right knee (principal); M17.11 Unilateral primary osteoarthritis, right knee; S83.411A Sprain of medial collateral ligament of right knee, initial encounter; I10 Essential (primary) hypertension; M19.90 Unspecified osteoarthritis, unspecified site; Z98.890 Other specified postprocedural states; Z79.899 Other long term (current) drug therapy; Z79.891 Long term (current) use of opiate analgesic; Z91.040 Latex allergy status; Z88.8 Allergy status to other drugs, medicaments and biological substances; X58.XXXA Exposure to other specified factors, initial encounter; Y93.89 Activity, other specified; Y92.89 Other specified places as the place of occurrence of the external cause; Y99.8 Other external cause status

== ENCOUNTER → 2021-06-23 | Outpatient (CLI) | payer OTHER ==
[~2021-06-23] VITALS: Ht 177.8 cm; Wt 85.3 kg
[2021-06-23 09:21] VITALS: BP 120/72
--- NOTE | 2021-06-23 09:30 | NUR ---
Pain Clinic Assessment: 1. History of Osteoarthritis: KNEES History of Rheumatoid Arthritis: Not Applicable 2. Height: 5 ft. 10 in. 177.8 cm. Weight: 188.0 lb. oz. 85.276 kg. Patient's BMI: 27.0 3. Vital Signs: BP: 120/72 Pulse: 92 Resp: 18 Temp: 02 Sat: 98 ECG Mon: 4. Pain Intensity: 5 5. Fall Risk: Dizziness: N Needs help standing or walking: N Fallen in the last 3 months: N Fall risk comments: 6. Patient on Blood Thinner: None 7. History of Hypertension: Y 8. Opioid Therapy greater than 6 weeks: Y Opiate Contract Signed: 06/06/01 9. Risk Assessment Tool Provided: 0-LOW 10. Functional Assessment Tool: 11. Recreational Drug Use: Never Drug Type: Tobacco Use: Former Smoker Tobacco Type: Amount or Packs/day: How Many Years: Alcohol Use: Yes Frequency: Special Occasions Quant: 1
--- NOTE | 2021-06-24 08:15 | HPC ---
[facility] [place] [address] PAIN MANAGEMENT CONSULTATION Name: ADINA MCGOWAN Room #: REG SHANIA Gus#: [id number] Admission: 06/23/21 Attend Phys: Lam Martinez DO Discharge: Date of : 55 Report #: [id number] THIS REPORT FOR: cc: Maggie Garibay,Lam Helms DO ~ cc: Maggie Garibay DO DATE OF SERVICE: 06/23/2021 REFERRING PHYSICIAN: Dr. Maggie Garibay CHIEF COMPLAINT: Right medial knee pain. HISTORY OF PRESENT ILLNESS: As you know, the patient is a very pleasant 65-year-old female following up today to undergo the third in the series of Synvisc injections to address right knee pain secondary to osteoarthritis. The patient underwent 2 Synvisc injections over the past 4 weeks with improvement in symptoms of about 30% with the initial injection and up to 50% improvement with the second injection, which is ongoing. She returns with pain level of 5/10 to undergo the third in the series of injections in hopes of further improvement. She has had no changes in medication management since her last visit that would preclude her from undergoing an injection today. ALLERGIES: ADHESIVE TAPE AND LATEX. CURRENT MEDICATIONS: Nabumetone, estradiol, testosterone, progesterone, rosuvastatin, spironolactone, zolpidem, levothyroxine, bupropion. SOCIAL HISTORY: The patient denies tobacco. Denies IV or illicit drug use. Denies any chronic alcohol use. She is retired, retired years ago, unaccompanied today. IMAGING: No new imaging available. PQRS: The patient has known arthritic changes of bilateral shoulders, bilateral knees and lumbar spine. No rheumatoid arthritis. Pain intensity is now rated at 5/10. She is not a fall risk, has not had a fall in last 3 months. She is not on blood thinners, but is treated for hypertension. She is on chronic opioids, has a low opioid addiction potential based on assessment tool. Pain impact is 26 of 70, mild to moderate interference of daily activities secondary to pain. PHYSICAL EXAMINATION: VITAL SIGNS: Blood pressure 120/72, pulse 92, respiratory rate 18 and unlabored. The patient is 98% on room air. Height 5 feet 10 inches tall, weight 188 pounds, BMI calculated 27.0. [place] [id number] PAIN MANAGEMENT CONSULTATION Name: ADINA MCGOWAN Room #: REG SHANIA Gus#: [id number] Admission: 06/23/21 Attend Phys: Lam Martinez DO Discharge: Date of : 55 Report #: [id number] GENERAL: Well-developed, well-nourished, well-hydrated 65-year-old female appearing stated age, pain is rated at a 5/10. HEENT: Normocephalic, atraumatic. She is wearing a mask in compliance with COVID-19 regulations/hospital policy. EXTREMITIES: Show no clubbing, no cyanosis, no edema. MUSCULOSKELETAL: Palpatory tenderness is once again noted over the medial aspect of the right knee. No erythema, no drainage in the area. No injuries. There is no swelling. Drawer tests are negative. Both anterior and posterior lateral collateral ligaments and medial collateral ligaments are intact. ASSESSMENT: 1. Right knee pain. 2. Right knee osteoarthritis. 3. Right medial collateral ligament strain. 4. Chronic intractable pain. PLAN: 1. The patient returns today in followup visit for the third in the series of Synvisc injections under fluoroscopic guidance. She reports excellent benefit with previous injection, now reporting up to 50-60% improvement in overall pain with the second in the series. She is hopeful to see continued improvement with the third in the series today. She has been advised risks and benefits of the procedure, states understood, and wished to proceed. 2. No medication changes made at today's visit. The patient will continue current medical therapy as prior prescribed. 3. We will see the patient back in followup visit on an as needed basis. Again, we are hopeful the patient will see good benefit with the Synvisc injection provided today. PROCEDURE NOTE. DESCRIPTION OF PROCEDURE: Right intra-articular knee injection under fluoroscopic guidance with Synvisc #3 in the series. After obtaining written consent, the patient was taken back to fluoroscopy suite, placed in a supine position. The right knee was braced with pillow and AP imaging was obtained of the right knee. The area overlying the medial aspect of the knee was then prepped and draped in aseptic fashion using chlorhexidine. A 27-gauge 1-1/4-inch needle was then used to anesthetize skin and subcutaneous tissue with 1 mL of preservative-free 1% lidocaine. A 25-gauge 2-inch needle was then advanced into the right knee utilizing a medial to cephalolateral approach entering the knee without complications. There was no pain or paresthesias with needle placement. After negative aspiration for heme, x-ray was obtained to confirm position of the needle. A 2 mL of Synvisc, high molecular weight hyaluronic acid 15 mg per mL, total of 30 mg was injected in [address] [address] PAIN MANAGEMENT CONSULTATION Name: ADINA MCGOWAN Room #: REG CLJia Weber#: [id number] Admission: 06/23/21 Attend Phys: Lam Martinez DO Discharge: Date of : 55 Report #: [id number] right knee. Needle was retracted mcc flushed with 1 mL of 1% lidocaine and removed. Sterile bandage placed over injection site. There were no new motor deficits present in the lower extremity following procedure. The patient tolerated the procedure well, carefully escorted to recovery room in stable condition. No apparent complications. After meeting discharge criteria, the patient discharged home. <ELECTRONICALLY SIGNED> By: Lam Martinez DO 06/24/21 [id number] Lam Martinez DO /nt
== END | disposition home or self-care (01) ==
LOC: PAIN 08:05
PROVIDERS: ATTEND Anesthesiology Pain Medicine
DX: M25.561 Pain in right knee (principal); M17.11 Unilateral primary osteoarthritis, right knee; S83.411A Sprain of medial collateral ligament of right knee, initial encounter; G89.29 Other chronic pain; I10 Essential (primary) hypertension; M19.90 Unspecified osteoarthritis, unspecified site; Z98.890 Other specified postprocedural states; Z79.899 Other long term (current) drug therapy; Z87.891 Personal history of nicotine dependence; X58.XXXA Exposure to other specified factors, initial encounter; Y93.89 Activity, other specified; Y92.89 Other specified places as the place of occurrence of the external cause; Y99.8 Other external cause status; Z91.040 Latex allergy status